=== PATIENT | male | born 1985 | race African-American/Black ===

== ENCOUNTER 2023-03-03 14:06 | Emergency (ER) | payer OTHER ==
[~2023-03-03] VITALS: Ht 172.7 cm; Wt 71.5 kg
[2023-03-03 16:34] LABS: EOS # 0.1 10^3/uL (0.0-0.5); EOS % 1.5 % (0.0-3.0); HEMATOCRIT 43.9 % (42.0-52.0); HEMOGLOBIN 14.1 g/dl (13.5-17.5); LYMPH # 2.3 10^3/uL (1.5-5.0); LYMPH % 57.2 % (24.0-44.0); MEAN CORPUSCULAR HEMOGLOBIN 27.3 pg (27.0-33.0); MEAN CORPUSCULAR HGB CONC 32.1 g/dl (32.0-36.5); MEAN CORPUSCULAR VOLUME 84.9 fl (80.0-96.0); MONO # 0.4 10^3/uL (0.0-0.8); MONO % 10.4 % (2.0-8.0); NEUTROPHILS # 1.2 10^3/uL (1.5-8.5); NEUTROPHILS % 29.9 % (36.0-66.0); PLATELET COUNT, AUTOMATED 264 10^3/uL (150-450); RED BLOOD COUNT 5.17 10^6/uL (4.30-6.10)
[2023-03-03 16:52] LABS: INR 1.02; PROTHROMBIN TIME 13.1 SECONDS (12.5-14.5)
[2023-03-03 16:53] LABS: PARTIAL THROMBOPLASTIN TIME 27.4 SECONDS (24.8-34.2)
[2023-03-03 17:02] LABS: BLOOD UREA NITROGEN 17 MG/DL (9-23); CALCIUM LEVEL 9.1 MG/DL (8.5-10.1); CARBON DIOXIDE LEVEL 29 MMOL/L (20-31); CHLORIDE LEVEL 104 MMOL/L (98-107); CK-MB VALUE MASS < 1.0 NG/ML (<3.6); CPK CREATINE PHOSPHOKINASE 225 U/L (46-171); GLOMERULAR FILTRATION RATE > 60.0 (>60); GLUCOSE, FASTING 90 MG/DL (60-100); MB/CK RELATIVE INDEX 0.44 (< OR =4); POTASSIUM SERUM 3.8 MMOL/L (3.5-5.1); SODIUM LEVEL 140 MMOL/L (136-145)
[2023-03-03 18:47] LABS: CK-MB VALUE MASS < 1.0 NG/ML (<3.6)
[2023-03-03 18:51] LABS: FREE T4 0.97 NG/DL (0.89-1.76); THYROID STIMULATING HORMONE 1.084 uIU/ML (0.55-4.78)
[2023-03-03 18:52] LABS: CPK CREATINE PHOSPHOKINASE 208 U/L (46-171); MB/CK RELATIVE INDEX 0.48 (< OR =4)
[2023-03-03 19:36] VITALS: BP 130/67; TEMP 98; O2SAT 98
== END 2023-03-03 19:37 | disposition home or self-care (01) ==
LOC: M ED 14:06
DX: R07.89 Other chest pain (principal)

== ENCOUNTER → 2023-08-24 | Outpatient (CLI) | payer OTHER | LOC: M PLAIMG 08:06 | PROVIDERS: ATTEND Physician Assistant | DX: R91.8 Other nonspecific abnormal finding of lung field (principal) ==

== ENCOUNTER 2024-02-05 17:51 | Emergency (ER) | payer OTHER ==
[~2024-02-05] VITALS: Ht 170.2 cm; Wt 74.1 kg
[2024-02-05 17:58] VITALS: BP 121/76; TEMP 98.2; O2SAT 100
[2024-02-05] MEDS ORDERED: SUMA50TA2 (17:59)
[2024-02-05] MEDS ORDERED: FLUT1BLS3 (17:59)
[2024-02-05] MEDS ORDERED: HYDR-3363 (17:59)
[2024-02-05] MEDS ORDERED: AMIT25TA19 (17:59)
[2024-02-05] MEDS ORDERED: IBUP-1022 PO (19:01)
[2024-02-05] MEDS ORDERED: CYCL-707 PO (19:01)
== END 2024-02-05 19:14 | disposition home or self-care (01) ==
LOC: EDBD 17:51 → M ED 17:51
DX: S13.4XXA Sprain of ligaments of cervical spine, initial encounter (principal); Y92.410 Unspecified street and highway as the place of occurrence of the external cause; Y93.9 Activity, unspecified; Y99.9 Unspecified external cause status; V49.40XA Driver injured in collision with unspecified motor vehicles in traffic accident, initial encounter; Z79.1 Long term (current) use of non-steroidal anti-inflammatories (NSAID); Z79.899 Other long term (current) drug therapy